=== PATIENT | female | born 2000 | race Caucasian/White ===

== ENCOUNTER 2023-04-10 10:55 | Emergency (ER) | payer BC ==
[2023-04-10] MEDS ORDERED: Fluorescein 1 MG Ophth Strip EYEBOTH ONE (11:12)
[2023-04-10] MEDS ORDERED: Proparacaine 0.5% Ophth Soln 15 ML Bottle EYEBOTH ONE (11:13)
[2023-04-10] MEDS ORDERED: Ofloxacin 0.3% Ophth Soln 5 ML Bottle EYERT SCH (11:45)
== END 2023-04-10 12:08 | disposition home or self-care (01) ==
LOC: JD.ED 10:55
DX: S05.01XA Injury of conjunctiva and corneal abrasion without foreign body, right eye, initial encounter (principal); X58.XXXA Exposure to other specified factors, initial encounter
CPT/HCPCS: 99282; 99283; A9270-GY; J3490